=== PATIENT | male | born 1990 ===

== ENCOUNTER 2025-01-23 05:15 | Emergency (ER) | payer MEDICAID, OTHER ==
[~2025-01-23] VITALS: Ht 170.2 cm; Wt 96.5 kg
--- NOTE | 2025-01-23 06:23 | ECG ---
[facility] Test Date: 2025-01-23 Test Time: 05:24:35 Pat Name: VANIA LAL Department: ED Room: Gender: M Environmental Health Safety Manager: IZZY : 1990 Requested By: EMERGENCY EMERGENCY Order Number: [id number] Reading MD: Clovis Camarena Measurements Intervals Naylor Rate: 64 P: 37 IN: 154 QRS: 85 QRSD: 99 T: 32 QT: 416 QTc: 430 Interpretive Statements Sinus rhythm Electronically Signed On 01-24-2025 18:46:42 PDT by Clovis Camarena Please click the below link to view image of tracing.
--- NOTE | 2025-01-23 07:58 | ED.PDOC ---
HPI Comments 34 y/o M, with no prior cardiac history presents to the ED for CC of palpitations. Patient states, he has been experiencing intermittent palpitations with associated shortness of breath x3days. Patient reports, that he drinks frequent energy drinks with last one being this past Wednesday (01/19/25) then symptoms shortly commenced after. Upon arrival to the ED, patient's blood pressure was elevated at 166/72mmHg. Patient denies chest pain, nausea, vomiting, headache, or dizziness. No other symptoms or modifying factors are present at this time. Chief Complaint: Palpitations Time Seen by MD: 06:35 Reviewed Notes: Nurses Notes, Medications, Allergies Allergies: Coded Allergies: NO KNOWN ALLERGIES (Unverified , 01/23/25) Home Meds Active Scripts Lisinopril (Lisinopril) 2.5 Mg Tab, 1 TAB PO DAILY for 5 Days, #5 TAB 5 Refills Prov:CHRISTO RIVERA MD 01/23/25 Information Source: Patient Mode of Arrival: Ambulatory Severity: Moderate Timing: Days Duration: Intermittent Prehospital treatment: None Onset: At Rest Cardiac Risk Factors: None PE Risk Factors: None History of: None Modifying Factors: Nothing Associated Signs and Symptoms: SOB, Palpitations Past Medical History PAST MEDICAL HISTORY: Denies Surgical History: Denies all surgeries Family History Family History: Unknown Social History Smoker: Non-Smoker Alcohol: Denies ETOH Use Drugs: Denies Drug Use Lives In: Home Constitutional: denies: chills, diaphoresis, fatigue, fever, malaise, sweats, weakness, others EENTM: denies: blurred vision, double vision, ear bleeding, ear discharge, ear drainage, ear pain, ear ringing, eye pain, eye redness, hearing loss, mouth pain, mouth swelling, nasal discharge, nose bleeding, nose congestion, nose pain, photophobia, tearing, throat pain, throat swelling, voice changes, others Respiratory: reports: shortness of breath; denies: cough, hemoptysis, orthopnea, SOB at rest, SOB with excertion, stridor, wheezing, others Cardiovascular: reports: palpitations; denies: chest pain, dizzy spells, diaphoresis, Dyspnea on exertion, edema, irregular heart beat, left arm pain, lightheadedness, PND, syncope, others Gastrointestinal: denies: abdomen distended, abdominal pain, blood streaked bowels, constipated, diarrhea, dysphagia, difficulty swallowing, hematemesis, melena, nausea, poor appetite, poor fluid intake, rectal bleeding, rectal pain, vomiting, others Genitourinary: denies: burning, dysuria, flank pain, frequency, hematuria, incontinence, penile discharge, penile sore, pain, testicle pain, testicle swelling, urgency, others Neurological: denies: dizziness, fainting, headache, left sided numbness, left sided weakness, numbness, paresthesia, pre-existing deficit, right sided numbness, right sided weakness, seizure, speech problems, tingling, tremors, weakness, others Musculoskeletal: denies: back pain, gout, joint pain, joint swelling, muscle pain, muscle stiffness, neck pain, others Integumetry: denies: bruises, change in color, change in hair/nails, dryness, laceration, lesions, lumps, rash, wounds, others Allergic/Immunocompromised: denies: Difficulty Healing, Frequent Infections, Hi ves, Itching, others Hematologic/Lymphatic: denies: anemia, blood clots, easy bleeding, easy bruising, swollen glands, others Endocrine: denies: excessive hunger, excessive sweating, excessive thirst, excessive urination, flushing, intolerance to cold, intolerance to heat, unexplained weight gain, unexplained weight loss, others Psychiatric: denies: anxiety, bipolar disorder, depression, hopeless, panic disorder, schizophrenia, sleepless, suicidal, others All Other Systems: Reviewed and Negative Physical Exam General Appearance: Moderate Distress HEENT: Normal ENT Inspection, Pharynx Normal, TMs Normal Neck: Full Range of Motion, Non-Tender, Normal, Normal Inspection Respiratory: Chest Non-Tender, Lungs Clear, No Accessory Muscle Use, No Respiratory Distress, Normal Breath Sounds Cardiovascular: No Edema, No JVD, No Murmur, No Gallop, Normal Peripheral Pulses, Regular Rate/Rhythm Breast Exam: Deferred Gastrointestinal: No Organomegaly, Non Tender, No Pulsatile Mass, Normal Bowel Sounds, Soft Genitalia: Deferred Pelvic: Deferred Rectal: Deferred Extremities: No calf tenderness, Normal capillary refill, Normal inspection, Normal range of motion, Non-tender, No pedal edema Musculoskeletal : Apperance: Normal Neurologic: Alert, spotlight operator II-XII nml as Tested, No Motor Deficits, Normal Affect, Normal Mood, No Sensory Deficits Cerebellar Function: Normal Reflexes: Normal Skin: Dry, Normal Color, Warm Peripheral Pulses: 3+ Radial (R), 3+ Radial (L) Lymphatic: No Adenopathy EKG EKG : Pulse Rate (adult): 64 Cardiac Rhythm: NSR Was a procedure done? Was a procedure done?: No CP Differential Dx Differential Diagnosis: A-fib, A-Flutter, Angina, Anxiety / Panic Attack, Atrial Dysrhythmia, Electrolyte Disorder, Pulmonary Embolus X-Ray, Labs, Meds, VS Vital Signs Date Time Temp Pulse Resp B/P (MAP) Pulse Ox O2 Delivery O2 Flow Rate FiO2 01/23/25 11:32 98.6 65 18 145/88 (107) 97 98.6 01/23/25 09:53 65 18 97 Room Air* 0 21 01/23/25 09:52 98.6 65 18 145/88 (107) 97 98.6 01/23/25 08:43 64 01/23/25 05:24 64 01/23/25 05:19 98.9 65 16 166/92 99 98.9 Lab Test 01/23/25 09:20 01/23/25 07:09 01/23/25 05:30 Range/Units Troponin I High Sensitivity < 3 L < 3 L < 3 L </=54 ng/L D-Dimer, Quantitative < 0.19 0.0-0.49 mg/L FEU Current Medications Medications (Trade) Dose Ordered Sig/Zeynep Route Start Time Stop Time Status Last Admin Lorazepam (Ativan Inj) 1 mg ONCE ONCE IV 01/23/25 07:30 01/23/25 07:31 DC 01/23/25 10:02 Patient alert. Complaining of chest pain. Blood pressure slightly elevated. Vitals stable. Answering questions. Was given clonidine. Was given aspirin. EKG reviewed does not show any acute changes. Cardiac marker within normal limits. He does not take any medication for his blood pressure. Was given prescription of lisinopril. Explained to the patient. Ambulating without difficulty. Was told to follow up with his primary care physician. Was told to come back if there is any problem. Time of 1ST Reevaluation: 07:05 Reevaluation 1ST: Improved Patient Education/Counseling: Diagnosis, Treatment Family Education/Counseling: No Family Present SEPSIS Sepsis Screen Date sepsis recognized/suspect: Jan 23, 2025 Time Sepsis recognized/suspect: 0522 Recent Procedure: No On Antibiotic Therapy: No Respiratory Rate >20: No Heart Rate >90: No Temp<36 C (96.8 F) or >38.3 C: No SBP <90 or MAP <65 mmHG: No New Acute Mental Status Change: No Is the patient on CPAP, BIPAP,: No Physician Orders Urinalysis (01/23/25 06:47) Vital Signs Date Time Temp Pulse Resp B/P (MAP) Pulse Ox O2 Delivery O2 Flow Rate FiO2 01/23/25 11:32 98.6 65 18 145/88 (107) 97 98.6 01/23/25 09:53 65 18 97 Room Air* 0 21 01/23/25 09:52 98.6 65 18 145/88 (107) 97 98.6 01/23/25 08:43 64 01/23/25 05:24 64 01/23/25 05:19 98.9 65 16 166/92 99 98.9 Medications Medications Dose Ordered Sig/Zeynep Route Start Time Stop Time Status Last Admin Dose Admin Lorazepam 1 mg ONCE ONCE IV 01/23/25 07:30 01/23/25 07:31 DC 01/23/25 10:02 Departure 1 Departure Time of Disposition: 08:41 Impression: Primary Impression: Hypertension Qualified Codes: I10 - Essential (primary) hypertension Disposition: 01 HOME / SELF CARE / HOMELESS Condition: Good e-Prescriptions Lisinopril (Lisinopril) 2.5 Mg Tab 1 TAB PO DAILY for 5 Days, #5 TAB 5 Refills Prov: CHRISTO RIVERA MD 01/23/25 Discharged With: Self Critical Care Note Critical Care Time?: No Stability Stability form required: No Heart Score Heart Score: Heart Score Response (Comments) Value History Slightly Suspicious 0 EKG Normal 0 Age <45 0 Risk Factors No known risk factors 0 Troponin Normal limit 0 Total 0 I personally scribed for CHRISTO RIVERA MD ([email or web address]) on 01/23/25 at 07:58. Electronically submitted by Suad Lucero ([email or web address]). CHRISTO RIVERA MD Jan 23, 2025 07:58
[2025-01-23] MEDS ORDERED: LISI2.5T47 PO (08:43)
[2025-01-23 09:53] VITALS: PULSE 65; RESP 18; O2SAT 97
[2025-01-23] MEDS: LORazepam 2MG/ML-1ML VIAL IV ONE (10:02)
[2025-01-23 11:32] VITALS: BP 145/88; PULSE 65; RESP 18; TEMP 98.6; O2SAT 97
== END 2025-01-23 11:30 | disposition home or self-care (01) ==
LOC: ER 05:15
DX: I10 Essential (primary) hypertension (principal); Z79.899 Other long term (current) drug therapy
CPT/HCPCS: 36415; 84484; 85379; 93005; 96374; 99284; J2060